=== PATIENT | female | born 1995 | race African-American/Black ===

== ENCOUNTER 2021-09-18 23:03 | Emergency (ER) | payer OTHER ==
[~2021-09-18] VITALS: Ht 157.5 cm; Wt 51.7 kg
[2021-09-18 23:52] LABS: ABSOLUTE NEUTROPHILS 4.1 thou/uL (1.4-8.2); BASOPHILS 1.1 % (0.0-2.0); EOSINOPHILS 1.2 % (0.0-3.0); HEMOGLOBIN 11.5 gm/dL (12.0-15.0); LYMPHOCYTES 38.5 % (24.0-44.0); MCH 27.6 pg (26.0-34.0); MCV 86.5 fL (80.0-100.0); MONOCYTES 8.9 % (1.0-8.0); PLATELET COUNT 199 thou/uL (150-400); POLYS 50.3 % (36.0-66.0); RBC 4.16 mil/uL (4.20-5.00); RDW 14.5 % (10.5-14.5); WBC 8.2 thou/uL (4.0-11.0)
[2021-09-18 23:55] LABS: CALCIUM 8.6 mg/dL (8.5-10.1); CREATININE 0.9 mg/dL (0.6-1.0); POTASSIUM 3.7 mmol/L (3.5-5.1)
[2021-09-19 00:05] LABS: TOTAL BILIRUBIN 0.6 mg/dL (0.2-1.0); TOTAL PROTEIN 7.3 g/dL (6.4-8.2)
[2021-09-19 02:23] LABS: URINE BILIRUBIN NEGATIVE (Negative); URINE BLOOD NEGATIVE (Negative); URINE CLARITY CLEAR; URINE COLOR YELLOW; URINE GLUCOSE-RANDOM* NEGATIVE (Negative); URINE KETONES TRACE (Negative); URINE LEUKOCYTES-REFLEX NEGATIVE (Negative); URINE NITRITE-REFLEX NEGATIVE (Negative); URINE PROTEIN (DIPSTICK) NEGATIVE (Negative); URINE SPECIFIC GRAVITY >= 1.030 (1.005-1.035); URINE UROBILINOGEN 0.2 E.U./dl (0.2-1.0)
[2021-09-19 02:32] VITALS: BP 90/55
--- NOTE | 2021-09-19 14:53 | EKG ---
[place] [address] [facility] [place] [address] ELECTROCARDIOGRAM REPORT Name: MAYNOR ENAMORADO Room #: DEP [facility]de[facility] [id number] Admission: 09/18/21 Attend Phys: Discharge: 09/19/21 Date of : [birth year] Report #: [id number] [facility] ED Test Date: 2021-09-18 Test Time: 23:10:05 Pat Name: MAYNOR ENAMORADO Department: Room: Gender: F Pastry Cook Apprentice: LETICIA : 1995 Requested By: Mane Wolfe Order Number: [id number] MD: Agustin Modi Measurements Intervals [place] Rate: 83 P: 64 TN: 191 QRS: 82 QRSD: 81 T: 67 QT: 375 QTc: 441 Interpretive Statements Sinus rhythm ST elev, probable normal early repol pattern Baseline wander in lead(s) II,III,aVF,V1,V4,V5 No previous ECG available for comparison Electronically Signed On 09-19-2021 14:53:43 DEPUTY ASSESSOR by Agustin Modi [email or web address] <ELECTRONICALLY SIGNED> By: Agustin Modi MD, [facility] 09/19/21 1453 2310 09 Agustin Modi MD, FACC /EPI
== END 2021-09-19 02:38 | disposition home or self-care (01) ==
LOC: ER 23:03
PROVIDERS: Emergency Medicine
DX: R07.89 Other chest pain (principal); Z88.5 Allergy status to narcotic agent